=== PATIENT | female | born 1945 | race Caucasian/White ===

== ENCOUNTER → 2019-01-07 | Outpatient (CLI) | payer OTHER ==
[~2019-01-07] MED LIST: ACETAMINOPHEN650 MG PO; DILTIAZEM ER60 MG PO; PANTOPRAZOLE SO40 MG PO; PLAVIX75 MG PO; REGADENOSON 0.4 MG/5 ML SYR IV ONE; REQUIP XL12 MG PO; ZOCOR40 MG PO
--- NOTE | 2019-01-08 14:10 | Myoview Stress Test ---
DATE OF STUDY: 01/07/2019 09:58:00 Stress Test - Treadmill ONLY Thank you Dr. Leroy White, for this nuclear interpretation consultation. Nuclear gated myocardial perfusion scan performed as per protocol at [facility]. This test is performed on 01/07/2019. This test is supervised by Dr. Leroy White. I did only the nuclear stress perfusion report only. Lexiscan injected 0.4 mg intravenously. Myoview injected 11 mCi for resting protocol and 31 mCi for stress protocol. IMPRESSION: 1. Normal gated myocardial perfusion scan. 2. No evidence of ischemia or scar noted. 3. Left ventricular ejection fraction of 65%. 4. Normal study. Monica Goins MD [facility] /[id number]
== END ==
LOC: NM 09:45
PROVIDERS: ATTEND Internal Medicine Cardiovascular Disease
DX: I20.8 Other forms of angina pectoris (principal)
CPT/HCPCS: 78452; 93017; A9502; J2785

== ENCOUNTER → 2022-11-23 | Day surgery (SDC) | payer MEDICARE, OTHER ==
[2022-11-18 12:27] LABS: BASOPHILS # (AUTO) 0.1 (0.0-0.1); BASOPHILS % 1.4 % (0.0-1.0); EOSINOPHILS # (AUTO) 0.1 (0.0-0.4); HEMATOCRIT 45.3 % (34.2-44.1); HEMOGLOBIN 14.6 g/dL (12.0-16.0); LYMPHOCYTES # (AUTO) 2.3 (1.0-3.2); LYMPHOCYTES % 39.4 % (18.0-39.1); MEAN CORPUSCULAR HEMOGLOBIN 31.4 pg (28-32); MEAN CORPUSCULAR HGB CONC 32.2 g/dL (31-35); MEAN CORPUSCULAR VOLUME 97.4 fL (81-99); MONOCYTES # (AUTO) 0.6 (0.2-0.8); MONOCYTES % 10.2 % (4.4-11.3); NEUTROPHILS # (AUTO) 2.8 (2.1-6.9); NEUTROPHILS % 47.8 % (38.7-80.0); PLATELET COUNT 276 x10e3/uL (140-360); RED BLOOD COUNT 4.65 x10e6/uL (3.6-5.1); RED CELL DISTRIBUTION WIDTH 12.8 % (11.7-14.4)
[~2022-11-23] MED LIST changes: +DIGOXIN250 MCG PO; +FENTANYL CITRATE/PF 100MCG/2 ML INJ ONE; +HYOSCYAMINE SULFATE 0.5 MG/ML INJ ONE; +ISOSORBIDE MONO20 MG PO; +LACTATED RINGER'S 1,000 ML ONE; +LIDOCAINE HCL 2% LOCAL INJ 5 ML SDV VIAL INJ ONE; +LORAZEPAM1 MG PO; +METOPROLOL SUCC25 MG PO; +MULTI-VITAMIN1 EACH PO; +NEURONTIN100 MG PO; +PROPOFOL IV EMULSION 10 MG/ML 20 ML VIAL ONE; -REGADENOSON 0.4 MG/5 ML SYR IV ONE; +ROPINIROLE HCL1 MG PO; +VITAMIN B-121000 MCG PO; +VITAMIN D3125 MCG PO; +ZETIA10 MG PO
[2022-11-23 12:17] VITALS: TEMP 97
[2022-11-23 12:40] VITALS: BP 107/68; PULSE 71; RESP 18; O2SAT 98
== END | disposition home or self-care (01) ==
LOC: OR 08:59
PROVIDERS: ATTEND Internal Medicine Gastroenterology
DX: Z09 Encounter for follow-up examination after completed treatment for conditions other than malignant neoplasm (principal); D12.2 Benign neoplasm of ascending colon; K62.1 Rectal polyp; K57.30 Diverticulosis of large intestine without perforation or abscess without bleeding; K64.8 Other hemorrhoids; K29.60 Other gastritis without bleeding; K21.9 Gastro-esophageal reflux disease without esophagitis; Z71.3 Dietary counseling and surveillance; G47.33 Obstructive sleep apnea (adult) (pediatric); I10 Essential (primary) hypertension; I25.10 Atherosclerotic heart disease of native coronary artery without angina pectoris; I71.40 Abdominal aortic aneurysm, without rupture, unspecified; G25.81 Restless legs syndrome; G62.9 Polyneuropathy, unspecified; F41.9 Anxiety disorder, unspecified; F32.A Depression, unspecified; F17.210 Nicotine dependence, cigarettes, uncomplicated; Z01.810 Encounter for preprocedural cardiovascular examination; Z01.812 Encounter for preprocedural laboratory examination; Z79.02 Long term (current) use of antithrombotics/antiplatelets; Z79.899 Other long term (current) drug therapy; Z95.810 Presence of automatic (implantable) cardiac defibrillator; Z95.5 Presence of coronary angioplasty implant and graft
CPT/HCPCS: 36415; 45385; 85025; 88305; 93005; J1980; J2001; J2704; J3010; J7121; 45378; 45380